=== PATIENT | female | born 1995 | race African-American/Black ===

== ENCOUNTER 2023-12-26 14:38 | Emergency (ER) | payer OTHER ==
[~2023-12-26] VITALS: Ht 165.1 cm; Wt 56.7 kg
[2023-12-26 14:45] VITALS: O2SAT 100
[2023-12-26] MEDS: BACITRACIN ZINC OINT UDPKT TOP ONE (17:15)
[2023-12-26] MEDS: LIDOCAINE HCL/PF 1% 10 MG/ML 5ML VIAL INFIL ONE (17:15)
[2023-12-26 18:09] VITALS: BP 126/68; PULSE 111; RESP 16; TEMP 98.4
[2023-12-26] MEDS: TETANUS, DIPHTHERIA, PERTUSSIS VAC/PF 0.5ML (>10YR OLD) IM ONE (18:09)
== END 2023-12-26 18:11 | disposition home or self-care (01) ==
LOC: ER 14:38
DX: S01.81XA Laceration without foreign body of other part of head, initial encounter (principal); Y04.0XXA Assault by unarmed brawl or fight, initial encounter; Y93.89 Activity, other specified; Y92.89 Other specified places as the place of occurrence of the external cause; Y99.8 Other external cause status
CPT/HCPCS: 90715; 12011; 90471; 99283; J3490; Z7610 ×2

== ENCOUNTER 2023-12-31 11:04 | Emergency (ER) | payer OTHER ==
[~2023-12-31] VITALS: Ht 165.1 cm; Wt 62.0 kg
[2023-12-31 11:16] VITALS: BP 138/71; PULSE 65; RESP 18; TEMP 98.3; O2SAT 100
== END 2023-12-31 12:58 | disposition home or self-care (01) ==
LOC: ER 11:07
DX: S01.81XD Laceration without foreign body of other part of head, subsequent encounter (principal); X58.XXXD Exposure to other specified factors, subsequent encounter
CPT/HCPCS: 99281

== ENCOUNTER 2024-01-05 08:05 | Emergency (ER) | payer MEDICAID, OTHER ==
[~2024-01-05] VITALS: Ht 172.7 cm; Wt 61.0 kg
[2024-01-05 08:09] VITALS: BP 124/72; RESP 20; TEMP 98.4; O2SAT 100
[2024-01-05 08:12] VITALS: PULSE 80
== END 2024-01-05 08:35 | disposition home or self-care (01) ==
LOC: ER 08:05
DX: S01.81XD Laceration without foreign body of other part of head, subsequent encounter (principal); Z48.02 Encounter for removal of sutures; X58.XXXD Exposure to other specified factors, subsequent encounter
CPT/HCPCS: 99281; Z7610

== ENCOUNTER 2025-01-11 15:24 | Emergency (ER) | payer MEDICAID ==
[~2025-01-11] VITALS: Ht 165.1 cm; Wt 59.0 kg
[2025-01-11 15:32] VITALS: O2SAT 100
[2025-01-11] MEDS: BACITRACIN ZINC OINT UDPKT TOP ONE (16:00)
[2025-01-11] MEDS: LIDOCAINE HCL/PF 1% 10 MG/ML 5ML VIAL INFIL ONE (16:00)
[2025-01-11] MEDS: ACETAMINOPHEN 325MG TABLET PO ONE (16:24)
[2025-01-11] MEDS: TETANUS, DIPHTHERIA, PERTUSSIS VAC/PF 0.5ML (>10YR OLD) IM ONE (16:27)
[2025-01-11] MEDS ORDERED: BO1 TP (17:11)
[2025-01-11] MEDS ORDERED: CEPH500C2 MT (17:11)
[2025-01-11 17:33] VITALS: BP 128/72; PULSE 87; RESP 17; TEMP 37.2; O2SAT 100
== END 2025-01-11 17:34 | disposition home or self-care (01) ==
LOC: ER 15:24
DX: S61.412A Laceration without foreign body of left hand, initial encounter (principal); Z79.899 Other long term (current) drug therapy; W26.0XXA Contact with knife, initial encounter; Y93.89 Activity, other specified; Y92.89 Other specified places as the place of occurrence of the external cause; Y99.8 Other external cause status
CPT/HCPCS: 81025; 73130; 90715; 12002; 90471; 99283; J2003; Z7610

== ENCOUNTER 2025-01-13 13:20 | Emergency (ER) | payer MEDICAID, OTHER ==
[~2025-01-13] VITALS: Ht 165.1 cm; Wt 59.0 kg
[~2025-01-13 13:20] MED LIST: BO1 TP; CEPH500C2 MT
[2025-01-13 13:30] VITALS: O2SAT 100
[2025-01-13] MEDS: BACITRACIN ZINC OINT UDPKT TOP ONE (14:52)
[2025-01-13 15:10] VITALS: BP 120/64; PULSE 48; RESP 18; TEMP 36.8; O2SAT 100
== END 2025-01-13 15:37 | disposition home or self-care (01) ==
LOC: ER 13:20
DX: S61.412D Laceration without foreign body of left hand, subsequent encounter (principal); X58.XXXD Exposure to other specified factors, subsequent encounter
CPT/HCPCS: 99282